=== PATIENT | male | born 1985 | race Caucasian/White ===

== ENCOUNTER 2016-10-02 06:38 | Inpatient (IN) | payer OTHER ==
[~2016-10-02 06:38] MED LIST: ACID CONTROL150 M2 PO; ARTIFICIAL TEAR1512 EACH EYE; CALMOSEPTINE OI71 G1 TP; DULCOLAX10 MG PR; LOVENOX40 MG/0.1 SC; MILK OF MAGNESIA PO; NO MEDICATIONS; SULFAMYLON SOL250 M1 EXT; SWEEN 24255 GM TP; THERA-M1 EAC1 PO; TUMS200 MG PO; TYLENOL325 M2 PO; ZEASORB AF TP; ZOFRAN ODT4 MG SL
[2016-10-03] MEDS ORDERED: PERCOCET 5-3251 EACH PO (10:03)
[2016-10-03] MEDS ORDERED: CALMOSEPTINE OI71 G1 TP (10:06)
[2016-10-04 05:31] LABS: HGB-HEMOGLOBIN 6.3 gm/dl (13.5-17.0); PLATELET COUNT 384 tho/cmm (150-450)
[2016-10-05 06:33] LABS: HGB-HEMOGLOBIN 7.4 gm/dl (13.5-17.0); IMMATURE GRANULOCYTES ABSOLUTE 0.03 tho/cmm (0-0.03); IMMATURE GRANULOCYTES PERCENT 0.3 % (0-0.3); LYMPH % 21.3 % (20-45); LYMPH ABSOLUTE COUNT 2.1 tho/cmm (0.8-4.5); MCH (MEAN CORPUSCULAR HGB) 23.1 pg (28.0-32.0); MCHC MEAN CORPUSCULAR HGB CONC 30.8 % (32.0-36.0); MCV (MEAN CELL VOLUME) 74.8 fl (82.0-96.0); MEAN PLATELET VOLUME 8.1 cmc (9.4-12.4); MONO % 8.8 % (0-12); MONOCYTE ABSOLUTE COUNT 0.9 tho/cmm (0.0-1.2); NEUTROPHIL ABSOLUTE COUNT 6.9 tho/cmm (1.6-8.0); NEUTROPHIL-AUTOMATED 6.9 tho/cmm (1.6-8.0); NEUTROPHILS % 69.6 % (40-80); PLATELET COUNT 417 tho/cmm (150-450); RED BLOOD COUNT 3.21 mil/cmm (4.40-5.70)
[2016-10-05] MEDS ORDERED: NORCO 5-325 TA1 EACH PO (12:07)
== END 2016-10-05 13:50 | DRG 475 ==
LOC: SHSC 06:38 → ORW 09:34 → PACU 10:41 → BURN 11:48
PROVIDERS: Family Medicine; Surgery; ADMIT Surgery
PROC: 0Y6F0ZZ Detachment at Right Knee Region, Open Approach (ICD-10-PCS; principal; 2016-10-02)
PROC: 30233N1 Transfusion of Nonautologous Red Blood Cells into Peripheral Vein, Percutaneous Approach (ICD-10-PCS; 2016-10-02)
DX: M86.8X7 Other osteomyelitis, ankle and foot (principal); Z68.41 Body mass index [BMI] 40.0-44.9, adult; E66.01 Morbid (severe) obesity due to excess calories; Z87.891 Personal history of nicotine dependence; J45.909 Unspecified asthma, uncomplicated; D64.9 Anemia, unspecified
CPT/HCPCS: J1100; J1200; J1644; J2270; J2543; J3010; P9016